=== PATIENT | male | born 1950 | race Caucasian/White ===

== ENCOUNTER 2016-10-26 11:42 | Emergency (ER) | payer MEDICARE ==
[~2016-10-26 11:42] MED LIST: AMITRIPTYLINE H25 MG PO; ANTIVERT12.5 MG PO; ASPIRIN ENTERI325 M1 PO; ATIVAN0.5 MG PO; DITROPAN5 MG PO; FLOMAX0.4 M1 PO; GLUCOTROL10 MG PO; KLONOPIN0.5 M3 PO; LORTAB 5/500 TA1 TA1 PO; MEDROL4 MG/DOSE- PO; MELOXICAM15 MG PO; METFORMIN HCL500 M1 PO; METOPROLOL TAR25 MG PO; MONTELUKAST SOD10 MG PO; NEURONTIN600 MG PO; PLAVIX PO; SIMVASTATIN80 MG PO; VITAMIN B COMPL1 TA3 PO; VITAMIN B-1000 MCG/1 INJ; ZITHROMAX PO
== END 2016-10-26 12:50 | disposition home or self-care (01) ==
LOC: CED 11:42
DX: T78.40XA Allergy, unspecified, initial encounter (principal); R21 Rash and other nonspecific skin eruption; E11.40 Type 2 diabetes mellitus with diabetic neuropathy, unspecified; Z90.49 Acquired absence of other specified parts of digestive tract; Z88.0 Allergy status to penicillin; Z88.2 Allergy status to sulfonamides; Z88.5 Allergy status to narcotic agent; Z79.899 Other long term (current) drug therapy; Z79.82 Long term (current) use of aspirin; Z87.891 Personal history of nicotine dependence
CPT/HCPCS: 99282; J1200; J2930